=== PATIENT | female | born 2000 | race African-American/Black ===

== ENCOUNTER 2018-11-04 12:49 | Day surgery (SDC) | payer OTHER ==
[~2018-11-04 12:49] MED LIST: SEVOFLURANE 15 MIN
[2018-11-04] MEDS ORDERED: FENTAnyl 50 MCG/ML VIAL (16:37)
[2018-11-04] MEDS ORDERED: MIDAZOLAM 1 MG/ML 2 ML INJ (16:37)
[2018-11-04] MEDS ORDERED: ROCURONIUM 50 MG INJ (16:37)
[2018-11-04] MEDS ORDERED: CEFAZOLIN 1 GM INJ (16:37)
[2018-11-04] MEDS ORDERED: PROPOFOL 20 ML (16:37)
[2018-11-04] MEDS ORDERED: DEXAMETHASONE 4 MG/ML 1 ML INJ (16:39)
[2018-11-04] MEDS ORDERED: METOCLOPRAMIDE 10 MG INJ (16:39)
[2018-11-04] MEDS ORDERED: ONDANSETRON 4 MG INJ (16:39)
[2018-11-04] MEDS ORDERED: OXYCODONE/ACETAMINOPHEN (5/325) TAB PO (17:00)
[2018-11-04] MEDS ORDERED: METOCLOPRAMIDE 10 MG INJ IV (17:00)
[2018-11-04] MEDS ORDERED: EPHEDrine SULFATE 50 MG/5 ML SYG IV (17:00)
[2018-11-04] MEDS ORDERED: MEPERIDINE 25 MG INJ IV (17:00)
[2018-11-04] MEDS ORDERED: LABETALOL HCL 20MG INJ IV (17:00)
[2018-11-04] MEDS ORDERED: DIPHENHYDRAMINE 50 MG INJ IV (17:00)
[2018-11-04] MEDS ORDERED: HYDROmorphONE 1 MG/5 ML IV SYRINGE IV ×2 (17:00)
[2018-11-04] MEDS ORDERED: FENTAnyl 50 MCG/ML VIAL IV ×2 (17:00)
[2018-11-04] MEDS ORDERED: NEOSTIGMINE 3 MG/3 ML SYRINGE (17:02)
[2018-11-04] MEDS ORDERED: GLYCOPYRROLATE 0.4 MG INJ (17:02)
[2018-11-04] MEDS ORDERED: SUGAMMADEX SODIUM 200 MG/2 ML VIAL IV (17:08)
[2018-11-04] MEDS: ONDANSETRON 4 MG INJ IV (17:22)
[2018-11-04] MEDS ORDERED: HYDROCODONE/APAP (5/325) TAB PO (17:30)
== END 2018-11-04 18:30 | disposition home or self-care (01) ==
LOC: SDS 12:49
DX: J03.91 Acute recurrent tonsillitis, unspecified (principal); J35.01 Chronic tonsillitis
CPT/HCPCS: 42826; 84703; 88304